=== PATIENT | female | born 1965 | race Hispanic/Latino ===

== ENCOUNTER → 2023-09-05 06:33 | Day surgery (SDC) | payer BC, SELFPAY | LOC: GI 06:33 | PROVIDERS: ATTENDING PHYSICIAN Internal Medicine | DX: Z12.11 Encounter for screening for malignant neoplasm of colon (principal); K64.8 Other hemorrhoids; K57.30 Diverticulosis of large intestine without perforation or abscess without bleeding; K64.4 Residual hemorrhoidal skin tags; D12.3 Benign neoplasm of transverse colon; Z86.010 Personal history of colon polyps | CPT/HCPCS: 45385; 88305 ==

== ENCOUNTER → 2023-09-27 11:55 | Outpatient (REF) | payer BC, SELFPAY | LOC: WDC 11:55 | PROVIDERS: ATTENDING PHYSICIAN Obstetrics & Gynecology Gynecology; FAMILY PHYSICIAN Internal Medicine | DX: Z12.31 Encounter for screening mammogram for malignant neoplasm of breast (principal) | CPT/HCPCS: 77063; 77067 ==

== ENCOUNTER → 2024-01-13 12:50 | Outpatient (REF) | payer BC, SELFPAY | LOC: RAD 12:50 | PROVIDERS: ATTENDING PHYSICIAN Physician Assistant | DX: E07.89 Other specified disorders of thyroid (principal) | CPT/HCPCS: 76536 ==

== ENCOUNTER → 2024-03-14 10:04 | Outpatient (REF) | payer BC, SELFPAY ==
[2024-03-14 10:40] LABS: % Basophils 0.8 % (0-2); % Eosinophils 4.7 % (0-6); % Immature Granulocytes 0.2 % (0-0.5); % Lymphocytes 37.3 % (20.5-51.1); Absolute Eosinophils 0.2 10^3/uL (0-0.7); Absolute Lymphocytes 1.9 10^3/uL (1.2-3.4); Absolute Monocytes 0.5 10^3/uL (0.1-0.6); Absolute Neutrophils 2.4 10^3/uL (1.4-6.5); Hemoglobin 14.1 g/dL (12.0-16.0); Mean Corp Hgb Conc. 35.3 g/dL (33.0-37.0); Mean Corpuscular Hgb 32.8 pg (27.0-31.0); Mean Platelet Volume 8.6 fL (7.4-10.4); Nucleated Red Blood Cells % 0 %; Platelet Count 305 10^3/uL (130-400); Red Cell Dist. Width 12.6 % (11.5-14.5); White Blood Cell Count 5.1 10^3/uL (4.8-10.8)
[2024-03-14 10:55] LABS: ALT (SGPT) 28 U/L (0-35); AST (SGOT) 37 U/L (14-36); Albumin 4.5 g/dl (3.5-5.0); Alkaline Phosphatase 68 U/L (38-126); Blood Urea Nitrogen 17 mg/dl (7-17); Calcium 9.9 mg/dl (8.4-10.2); Carbon Dioxide 29 mmol/L (22-30); Chloride 104 mmol/L (98-107); Glucose 89 mg/dl (70-99); HDL Cholesterol 98 mg/dl; LDL Cholesterol, Calculated 97 mg/dl; Potassium 4.7 mmol/L (3.5-5.1); Sodium 142 mmol/L (135-145); Total Bilirubin 1.3 mg/dl (0.2-1.3); Total Cholesterol 213 mg/dl (50-199); Total Protein 7.4 g/dl (6.3-8.2); Triglyceride 91 mg/dl (10-149); Very Low Density Lipoprotein 18 mg/dl (0-30); eGFR > 60.00
[2024-03-14 11:18] LABS: Free T4 0.96 ng/dl (0.78-2.19)
[2024-03-14 11:32] LABS: TSH 1.29 uIU/ml (0.47-4.68)
== END ==
LOC: REG 10:04
PROVIDERS: ATTENDING PHYSICIAN Physician Assistant
DX: Z76.89 Persons encountering health services in other specified circumstances (principal); E07.89 Other specified disorders of thyroid; Z83.49 Family history of other endocrine, nutritional and metabolic diseases; E66.3 Overweight; R17 Unspecified jaundice; Z13.220 Encounter for screening for lipoid disorders
CPT/HCPCS: 36415; 80053; 80061; 84439; 84443; 85025

== ENCOUNTER → 2024-09-01 15:46 | Outpatient (REF) | payer BC, SELFPAY | LOC: CLAB 15:46 | PROVIDERS: ATTENDING PHYSICIAN Obstetrics & Gynecology Gynecology | DX: R30.0 Dysuria (principal) | CPT/HCPCS: 87086 ==

== ENCOUNTER → 2024-10-02 11:05 | Outpatient (REF) | payer BC, SELFPAY | LOC: WDC 11:05 | PROVIDERS: ATTENDING PHYSICIAN Obstetrics & Gynecology Gynecology; FAMILY PHYSICIAN Physician Assistant | DX: Z12.31 Encounter for screening mammogram for malignant neoplasm of breast (principal) | CPT/HCPCS: 77063; 77067 ==

== ENCOUNTER → 2025-03-19 08:46 | Outpatient (REF) | payer BC, SELFPAY ==
[2025-03-19 10:32] LABS: Hematocrit 41.2 % (37.0-47.0); Hemoglobin 14.4 g/dL (12.0-16.0); Mean Corp Hgb Conc. 35.0 g/dL (33.0-37.0); Mean Corpuscular Volume 95.6 fL (81.0-99.0); Nucleated Red Blood Cells % 0 %; Platelet Count 297 10^3/uL (130-400); Red Cell Dist. Width 12.4 % (11.5-14.5)
[2025-03-19 11:16] LABS: ALT (SGPT) 30 U/L (0-35); AST (SGOT) 30 U/L (14-36); Albumin 4.6 g/dl (3.5-5.0); Alkaline Phosphatase 72 U/L (38-126); Blood Urea Nitrogen 15 mg/dl (7-17); Calcium 9.3 mg/dl (8.4-10.2); Carbon Dioxide 28 mmol/L (22-30); Chloride 107 mmol/L (98-107); Glucose 78 mg/dl (70-99); HDL Cholesterol 107 mg/dl; LDL Cholesterol, Calculated 93 mg/dl; Potassium 5.3 mmol/L (3.5-5.1); Sodium 141 mmol/L (135-145); Total Protein 7.7 g/dl (6.3-8.2); Very Low Density Lipoprotein 14 mg/dl (0-30); eGFR > 60.00
== END ==
LOC: REG 08:46
PROVIDERS: ATTENDING PHYSICIAN Physician Assistant
DX: M25.50 Pain in unspecified joint (principal); F51.01 Primary insomnia; J30.2 Other seasonal allergic rhinitis; Z13.220 Encounter for screening for lipoid disorders
CPT/HCPCS: 36415; 80053; 80061; 84443; 85025

== ENCOUNTER → 2025-04-13 09:43 | Outpatient (REF) | payer BC, SELFPAY | LOC: WDC 09:43 | PROVIDERS: ATTENDING PHYSICIAN Physician Assistant | DX: N63.11 Unspecified lump in the right breast, upper outer quadrant (principal) | CPT/HCPCS: 76642; 77061; 77065 ==